=== PATIENT | male | born 1980 | race African-American/Black ===

== ENCOUNTER → 2019-01-28 | Outpatient (CLI) | payer OTHER | LOC: COL.VAS 10:25 | DX: I82.402 Acute embolism and thrombosis of unspecified deep veins of left lower extremity (principal); Z86.718 Personal history of other venous thrombosis and embolism ==

== ENCOUNTER → 2019-01-31 | Outpatient (CLI) | payer OTHER | LOC: COL.VAS 09:00 | DX: R07.9 Chest pain, unspecified (principal); Z86.711 Personal history of pulmonary embolism ==

== ENCOUNTER → 2019-05-08 | Outpatient (CLI) | payer OTHER | LOC: COL.RAD 09:14 | DX: Z86.711 Personal history of pulmonary embolism (principal); Z86.718 Personal history of other venous thrombosis and embolism | CPT/HCPCS: Q9967 ==